=== PATIENT | male | born 1975 | race Caucasian/White ===

== ENCOUNTER → 2019-12-25 | Outpatient (CLI) | payer BC ==
--- NOTE | 2019-12-26 07:05 | US ---
EXAMINATION TYPE: US st tissue head/neck DATE OF EXAM: 12/25/2019 COMPARISON: NONE CLINICAL HISTORY: R22.1 Mass on neck. Midline anterior neck intermittent palpable. US findings of palpable area scanned: oval, hypoechoic, heterogeneous mass with lobular borders noted very superficially and size of mass = 0.4 x 0.4 x 0.2cm. IMPRESSION: Nonspecific superficial hypoechoic lesion could reflect a sebaceous cyst. Lesion of other etiology no t excluded. Correlate clinically. Consider contrast-enhanced CT of the neck if felt clinically indica elvira.
== END | disposition home or self-care (01) ==
LOC: RADUSWWP 16:27
PROVIDERS: ATTEND Family Medicine
DX: R22.1 Localized swelling, mass and lump, neck (principal)
CPT/HCPCS: 76536